=== PATIENT | female | born 1950 | race African-American/Black ===

== ENCOUNTER 2017-04-15 13:10 | Emergency (ER) | payer MEDICARE ==
[~2017-04-15] VITALS: Ht 170.2 cm; Wt 122.5 kg
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
[2017-04-15] MEDS ORDERED: Ketorolac 60mg Inj IM ONE (13:30)
[2017-04-15] MEDS ORDERED: Albuterol ud Inhalation HHN ONE (13:30)
[2017-04-15] MEDS ORDERED: Ipratropium 0.02% Inh Soln 2.5ml UD HHN ONE (13:30)
[2017-04-15] MEDS ORDERED: Tylenol #3 tab (300mg/30mg) ORAL ONE (13:30)
[2017-04-15 13:56] VITALS: BP 100/75
[2017-04-15] MEDS ORDERED: HYDROmorphone 1mg/ml Carpuject IM ONE (14:30)
[2017-04-15] MEDS ORDERED: ROBAXIN-750750 MG PO (14:44)
[2017-04-15] MEDS ORDERED: IBUPROFEN600 MG ORAL (14:44)
[2017-04-15] MEDS ORDERED: NORCO 10-325 T1 EACH ORAL (14:44)
[2017-04-15 14:58] VITALS: BP 129/73
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
--- NOTE | 2017-04-16 11:06 | Diagnostic Imaging Report ---
Indication: Chest pain Technique: One view of the chest Comparison: none Findings: There is marked eventration of left hemidiaphragm versus diaphragmatic hernia versus large hiatal hernia. The lungs and pleural spaces are clear. Surgical clips versus external metal versus artifact projected over the left lateral breast Impression: No acute process. Large diaphragmatic hernia versus diaphragmatic eventration versus hiatal hernia This agrees with the preliminary interpretation provided by the emergency room physician
== END 2017-04-15 15:08 | disposition home or self-care (01) ==
LOC: EMR 13:48
DX: S43.402A Unspecified sprain of left shoulder joint, initial encounter (principal); V43.52XA Car driver injured in collision with other type car in traffic accident, initial encounter; Y92.410 Unspecified street and highway as the place of occurrence of the external cause; I10 Essential (primary) hypertension; J45.909 Unspecified asthma, uncomplicated; Z88.0 Allergy status to penicillin; Z88.2 Allergy status to sulfonamides
CPT/HCPCS: 71010; 73030; 94640; 94664; 96372; 99284; J1170

== ENCOUNTER 2018-01-25 20:38 | Inpatient (IN) | payer MEDICARE ==
[~2018-01-25] VITALS: Ht 170.2 cm; Wt 107.5 kg
[~2018-01-25 20:38] MED LIST: IBUPROFEN600 MG ORAL; NORCO 10-325 T1 EACH ORAL; ROBAXIN-750750 MG PO
[2018-01-25] MEDS ORDERED: Gastrograffin 30ml ORAL PRN (21:15)
[2018-01-25] MEDS ORDERED: Isovue-300 100ml vial INJ PRN (21:15)
--- NOTE | 2018-01-25 21:22 | Emergency Room Report ---
History of Present Illness General Chief Complaint: General Complaint Source: Patient Present Illness HPI Patient is a 67-year-old female who presented after increased dizziness as well as lower abdominal pain. Patient gradual onset of symptoms. She reports having increased discomfort to her lower abdomen which was associated with sharp pain worse on the right side. Patient reports having recently decreased blood sugar. Patient had prior history of gastric bypass approximately 4 months ago. She had not been vomiting. Patient presented increased dizziness. She describes as a spinning sensation. The patient was noted to have a blood sugars in the 70s when she had check.The patient reports having a 40 pound weight loss after gastric bypass surgery. She reports taking the same medications that she previously been on. Allergies: Coded Allergies: PENICILLINS (Verified Allergy, Severe, Rash, 04/15/17) SULFA (SULFONAMIDE ANTIBIOTICS) (Verified Allergy, Severe, Rash, 04/15/17) Patient History Last Menstrual Period: none Reviewed Nursing Documentation: PMH: Agreed; PSxH: Agreed Nursing Documentation-PMH Hx Hypertension: Yes Hx Asthma: Yes Hx Diabetes: Yes Review of Systems All Other Systems: negative except mentioned in HPI Physical Exam Vital Signs Date Time Temp Pulse Resp B/P (MAP) Pulse Ox O2 Delivery O2 Flow Rate FiO2 01/25/18 20:43 98.6 100 20 115/74 92 Room Air 98.6 Sp02 EP Interpretation: reviewed, normal General Appearance: normal inspection, well appearing, no apparent distress, alert, GCS 15 Head: atraumatic ENT: normal ENT inspection, hearing grossly normal, normal voice Neck: normal inspection, full range of motion, supple, no bony tend Respiratory: normal inspection, lungs clear, normal breath sounds, no respiratory distress, no retraction, no wheezing Cardiovascular #1: regular rate, rhythm, no edema Gastrointestinal: normal inspection, normal bowel sounds, non tender, soft, no guarding, no hernia Genitourinary: no CVA tenderness Musculoskeletal: normal inspection, back normal, normal range of motion Neurologic: normal inspection, alert, oriented x3, responsive, speech normal Psychiatric: normal inspection, judgement/insight normal, mood/affect normal Skin: normal color, no rash, other - erythema to abdomen wall slight drainage tenderness Medical Decision Making Diagnostic Impression: Primary Impression: Abdominal wall cellulitis Additional Impressions: History of gastric bypass Urinary tract infection [place] infection Dizziness ER Course Patient presented for abdominal pain. Differential diagnoses included ischemic bowel, appendicitis, perforated viscus, abdominal aortic aneurysm, inferior myocardial infarction, viral gastroenteritis Because of complexity of patient's case laboratory testing and imaging studies were ordered. The patient's laboratory studies are unremarkable. Patient was noted to have some difficulty maintaining her sugar. The patient states she's lost 40 pounds since surgery however she's not had any of her diabetes medications adjusted subsequently. The patient was noted to have some evidence of erythema and slight discharge to the lower abdominal area. CT of abdomen and pelvis read by radiology showed no evidence of acute findings. Dr. Nathen Bond was contacted for inpatient management due to panel physician Labs Test 01/25/18 21:15 01/26/18 00:10 01/26/18 03:00 White Blood Count 6.9 K/UL (4.8-10.8) Red Blood Count 4.03 M/UL (4.20-5.40) Hemoglobin 10.5 G/DL (12.0-16.0) Hematocrit 33.2 % (37.0-47.0) Mean Corpuscular Volume 82 FL (80-99) Mean Corpuscular Hemoglobin 25.9 PG (27.0-31.0) Mean Corpuscular Hemoglobin Concent 31.5 G/DL (32.0-36.0) Red Cell Distribution Width 17.9 % (11.6-14.8) Platelet Count 389 K/UL (150-450) Mean Platelet Volume 6.1 FL (6.5-10.1) Neutrophils (%) (Auto) 47.2 % (45.0-75.0) Lymphocytes (%) (Auto) 40.3 % (20.0-45.0) Monocytes (%) (Auto) 8.2 % (1.0-10.0) Eosinophils (%) (Auto) 3.0 % (0.0-3.0) Basophils (%) (Auto) 1.3 % (0.0-2.0) Prothrombin Time 10.1 SEC (9.30-11.50) Prothromb Time International Ratio 1.0 (0.9-1.1) Activated Partial Thromboplast Time 26 SEC (23-33) Sodium Level 142 MMOL/L (136-145) Potassium Level 3.9 MMOL/L (3.5-5.1) Chloride Level 105 MMOL/L (98-107) Carbon Dioxide Level 28 MMOL/L (21-32) Anion Gap 9 mmol/L (5-15) Blood Urea Nitrogen 10 mg/dL (7-18) Creatinine 0.8 MG/DL (0.55-1.30) Estimat Glomerular Filtration Rate > 60 mL/min (>60) Glucose Level 104 MG/DL (74-106) Lactic Acid Level 1.10 mmol/L (0.4-2.0) Calcium Level 9.2 MG/DL (8.5-10.1) Phosphorus Level 4.1 MG/DL (2.5-4.9) Magnesium Level 1.9 MG/DL (1.8-2.4) Total Bilirubin 0.3 MG/DL (0.2-1.0) Aspartate Amino Transf (AST/SGOT) 18 U/L (15-37) Alanine Aminotransferase (ALT/SGPT) 24 U/L (12-78) Alkaline Phosphatase 94 U/L (46-116) Total Creatine Kinase 69 U/L (26-308) Creatine Kinase MB 0.5 NG/ML (0.0-3.6) Creatine Kinase MB Relative Index 0.7 Troponin I 0.000 ng/mL (0.000-0.056) Total Protein 7.4 G/DL (6.4-8.2) Albumin 3.6 G/DL (3.4-5.0) Globulin 3.8 g/dL Albumin/Globulin Ratio 0.9 (1.0-2.7) Urine Color Yellow Urine Appearance Clear Urine pH 7 (4.5-8.0) Urine Specific [place] 1.005 (1.005-1.035) Urine Protein 2+ (NEGATIVE) Urine Glucose (UA) Negative (NEGATIVE) Urine Ketones Negative (NEGATIVE) Urine Occult Blood Negative (NEGATIVE) Urine Nitrite Negative (NEGATIVE) Urine Bilirubin Negative (NEGATIVE) Urine Urobilinogen 1 MG/DL (0.0-1.0) Urine Leukocyte Esterase 1+ (NEGATIVE) Urine RBC 0-2 /HPF (0 - 2) Urine WBC 2-4 /HPF (0 - 2) Urine Squamous Epithelial Cells Few /LPF (NONE/OCC) Urine Bacteria Few /HPF (NONE) Hemoglobin A1c 6.3 % (4.3-6.0) Last Vital Signs Date Time Temp Pulse Resp B/P (MAP) Pulse Ox O2 Delivery O2 Flow Rate FiO2 01/25/18 20:43 98.6 100 20 115/74 92 Room Air 98.6 Status: unchanged Disposition: ADMITTED INPATIENT Condition: Stable Oskar Orozco MD Jan 25, 2018 21:21
[2018-01-25 22:04] LABS: BASOPHILS % (AUTO) 1.3 % (0.0-2.0); HEMATOCRIT 33.2 % (37.0-47.0); HEMOGLOBIN 10.5 G/DL (12.0-16.0); LYMPHOCYTES % (AUTO) 40.3 % (20.0-45.0); MEAN CORPUSCULAR VOLUME 82 FL (80-99); MONOCYTES % (AUTO) 8.2 % (1.0-10.0); NEUTROPHILS % (AUTO) 47.2 % (45.0-75.0); PLATELET COUNT 389 K/UL (150-450); RED BLOOD COUNT 4.03 M/UL (4.20-5.40); RED CELL DISTRIBUTION WIDTH 17.9 % (11.6-14.8); WHITE BLOOD COUNT 6.9 K/UL (4.8-10.8)
[2018-01-25 22:09] VITALS: BP 133/99
--- NOTE | 2018-01-25 22:10 | Diagnostic Imaging Report ---
EXAM: XR Chest, 1 View CLINICAL HISTORY: Shortness of breath TECHNIQUE: Frontal view of the chest. COMPARISON: 04/15/2017 FINDINGS: Lungs: Unremarkable. No consolidation. Pleural space: Unremarkable. No pneumothorax. Heart: Unremarkable. No cardiomegaly. Mediastinum: Unremarkable. Bones/joints: No acute osseous abnormality. Tubes, lines and devices: Telemetry leads overlie the patient. IMPRESSION: No acute cardiopulmonary process.
[2018-01-25 22:11] LABS: ANION GAP 9 mmol/L (5-15); BLOOD UREA NITROGEN 10 mg/dL (7-18); CALCIUM 9.2 MG/DL (8.5-10.1); CARBON DIOXIDE 28 MMOL/L (21-32); CHLORIDE 105 MMOL/L (98-107); CREATININE 0.8 MG/DL (0.55-1.30); POTASSIUM 3.9 MMOL/L (3.5-5.1); SODIUM 142 MMOL/L (136-145)
[2018-01-25 22:25] LABS: ALANINE AMINOTRANSFERASE 24 U/L (12-78); ALBUMIN 3.6 G/DL (3.4-5.0); ALBUMIN/GLOBULIN RATIO 0.9 (1.0-2.7); ALKALINE PHOSPHATASE 94 U/L (46-116); ASPARTATE AMINO TRANSFERASE 18 U/L (15-37); BILIRUBIN,TOTAL 0.3 MG/DL (0.2-1.0); CKMB 0.5 NG/ML (0.0-3.6); CREATINE KINASE 69 U/L (26-308); PHOSPHORUS 4.1 MG/DL (2.5-4.9)
[2018-01-25] MEDS ORDERED: Morphine Sulfate 4mg/ml Inj IVP ONE (23:15)
--- NOTE | 2018-01-25 23:21 | Diagnostic Imaging Report ---
EXAM: CT Abdomen and Pelvis With Intravenous Contrast CLINICAL HISTORY: ABD PAIN TECHNIQUE: Axial computed tomography images of the abdomen and pelvis with intravenous contrast. CTDI is 0.15, 19.28 mGy and DLP is 1018 mGy-cm. One or more of the following dose reduction techniques were used: automated exposure control, adjustment of the mA and/or kV according to patient size, use of iterative reconstruction technique. COMPARISON: No relevant prior studies available. FINDINGS: Lung bases: Unremarkable. No mass. No consolidation. ABDOMEN: Liver: Indeterminate 1.4 cm focus of hypoattenuation in the central liver near the gallbladder fossa. Gallbladder and bile ducts: Gallbladder surgically absent. Pancreas: Unremarkable. Spleen: Unremarkable. Adrenals: Unremarkable. Kidneys and ureters: Unremarkable. No solid mass. No hydronephrosis. Stomach and bowel: Gastric bypass. Bowel is nondilated. PELVIS: Appendix: No findings to suggest acute appendicitis. Bladder: Unremarkable. Reproductive: Uterus is absent. ABDOMEN and PELVIS: Intraperitoneal space: Unremarkable. No free air. Bones/joints: No acute osseous abnormality. Degenerative changes of the spine worst at T10-T11 where there is disc height loss and endplate sclerosis. Soft tissues: Unremarkable. Vasculature: Unremarkable. No abdominal aortic aneurysm. Lymph nodes: Unremarkable. IMPRESSION: No acute findings.
[2018-01-25] MEDS ORDERED: cefTRIAXone 1 GM in NS 55 ML IVPB ONE (23:45)
[2018-01-26] VITALS (8 sets, daily range): BP systolic 96–130; BP diastolic 52–80
[2018-01-26 00:43] LABS: APPEARANCE,URINE CLEAR; BILIRUBIN, URINE NEGATIVE (NEGATIVE); GLUCOSE, URINE (UA) NEGATIVE (NEGATIVE); KETONES,URINE NEGATIVE (NEGATIVE); LEUKOCYTE ESTERASE ,URINE 1+ (NEGATIVE); NITRITE,URINE NEGATIVE (NEGATIVE); PH,URINE 7 (4.5-8.0); PROTEIN,URINE 2+ (NEGATIVE); UROBILINOGEN,URINE 1 MG/DL (0.0-1.0)
[2018-01-26 00:48] LABS: COLOR,URINE YELLOW
[2018-01-26] MEDS ORDERED: Miralax 17gm pkt ORAL PRN (01:45)
[2018-01-26] MEDS ORDERED: ALBUTEROL2.5 MG/3 M INH (02:11)
[2018-01-26] MEDS ORDERED: PRILOSEC OTC20 MG ORAL (02:11)
[2018-01-26] MEDS ORDERED: METFORMIN HCL500 M1 ORAL (02:11)
[2018-01-26] MEDS ORDERED: ADALAT10 MG ORAL (02:11)
[2018-01-26] MEDS ORDERED: CYMBALTA30 MG ORAL (02:11)
[2018-01-26] MEDS: Morphine Sulfate 2mg/ml Inj IVP PRN ×3 (03:50→16:02)
[2018-01-26] MEDS ORDERED: Vancomycin 1.5 GM/D5W 250ML IVPB SCH (04:00)
[2018-01-26] MEDS ORDERED: Vancomycin 1.5gm/D5W 250ml 250 ML IVPB ONE (04:05)
[2018-01-26] MEDS: NovoLOG Insulin Flexpen SUBQ SCH ×4 (06:30→20:39)
[2018-01-26] MEDS: Docusate 100mg cap ORAL SCH ×2 (10:14→20:36)
[2018-01-26] MEDS: Heparin 5000 units/ml inj SUBQ SCH ×2 (10:16→20:38)
[2018-01-26] MEDS: Vancomycin 1gm/D5W 275ml IVPB SCH ×2 (16:08)
--- NOTE | 2018-01-26 16:43 | Infectious Diseases Prog Note ---
Assessment/Plan Assessment/Plan Full consult dictated: A) 1) abdominal wall cellulitis 2) ? fungal rash/component 3) pmh noted 4) allergies - pcn, tolerates rocephin P) 1) vancomycin plus rocephin 2) clotrimazole cream 3) watch clinically 4) thank you Subjective Allergies: Coded Allergies: PENICILLINS (Verified Allergy, Severe, Rash, 04/15/17) SULFA (SULFONAMIDE ANTIBIOTICS) (Verified Allergy, Severe, Rash, 04/15/17) Objective Vital Signs Last 24 Hour Vital Signs Date Time Temp Pulse Resp B/P (MAP) Pulse Ox O2 Delivery O2 Flow Rate FiO2 01/26/18 16:02 98.1 01/26/18 11:02 98.1 01/26/18 08:00 74 01/26/18 08:00 98.1 78 96/52 (67) 98.1 01/26/18 08:00 Room Air 01/26/18 04:00 98.2 77 96/52 (67) 98.2 01/26/18 04:00 85 01/26/18 04:00 Room Air 01/26/18 02:00 97.8 98 18 124/74 (91) 97 97.8 01/26/18 02:00 Room Air 01/26/18 01:53 98.6 01/26/18 01:40 98.6 87 15 129/80 97 Room Air 98.6 01/26/18 01:23 98.6 87 15 129/80 97 Room Air 98.6 01/26/18 00:05 98.6 81 20 130/74 97 Room Air 98.6 01/25/18 23:21 98.6 01/25/18 22:09 98.6 79 20 133/99 97 Room Air 98.6 01/25/18 20:43 98.6 100 20 115/74 92 Room Air 98.6 Height (Feet): 5 Height (Inches): 7.00 Weight (Pounds): 237 Laboratory Tests Test 01/25/18 21:15 01/26/18 00:10 01/26/18 03:00 White Blood Count 6.9 K/UL (4.8-10.8) Red Blood Count 4.03 M/UL (4.20-5.40) L Hemoglobin 10.5 G/DL (12.0-16.0) L Hematocrit 33.2 % (37.0-47.0) L Mean Corpuscular Volume 82 FL (80-99) Mean Corpuscular Hemoglobin 25.9 PG (27.0-31.0) L Mean Corpuscular Hemoglobin Concent 31.5 G/DL (32.0-36.0) L Red Cell Distribution Width 17.9 % (11.6-14.8) H Platelet Count 389 K/UL (150-450) Mean Platelet Volume 6.1 FL (6.5-10.1) L Neutrophils (%) (Auto) 47.2 % (45.0-75.0) Lymphocytes (%) (Auto) 40.3 % (20.0-45.0) Monocytes (%) (Auto) 8.2 % (1.0-10.0) Eosinophils (%) (Auto) 3.0 % (0.0-3.0) Basophils (%) (Auto) 1.3 % (0.0-2.0) Prothrombin Time 10.1 SEC (9.30-11.50) Prothromb Time International Ratio 1.0 (0.9-1.1) Activated Partial Thromboplast Time 26 SEC (23-33) Sodium Level 142 MMOL/L (136-145) Potassium Level 3.9 MMOL/L (3.5-5.1) Chloride Level 105 MMOL/L (98-107) Carbon Dioxide Level 28 MMOL/L (21-32) Anion Gap 9 mmol/L (5-15) Blood Urea Nitrogen 10 mg/dL (7-18) Creatinine 0.8 MG/DL (0.55-1.30) Estimat Glomerular Filtration Rate > 60 mL/min (>60) Glucose Level 104 MG/DL (74-106) Lactic Acid Level 1.10 mmol/L (0.4-2.0) Calcium Level 9.2 MG/DL (8.5-10.1) Phosphorus Level 4.1 MG/DL (2.5-4.9) Magnesium Level 1.9 MG/DL (1.8-2.4) Total Bilirubin 0.3 MG/DL (0.2-1.0) Aspartate Amino Transf (AST/SGOT) 18 U/L (15-37) Alanine Aminotransferase (ALT/SGPT) 24 U/L (12-78) Alkaline Phosphatase 94 U/L (46-116) Total Creatine Kinase 69 U/L (26-308) Creatine Kinase MB 0.5 NG/ML (0.0-3.6) Creatine Kinase MB Relative Index 0.7 Troponin I 0.000 ng/mL (0.000-0.056) Total Protein 7.4 G/DL (6.4-8.2) Albumin 3.6 G/DL (3.4-5.0) Globulin 3.8 g/dL Albumin/Globulin Ratio 0.9 (1.0-2.7) L Urine Color Yellow Urine Appearance Clear Urine pH 7 (4.5-8.0) Urine Specific [place] 1.005 (1.005-1.035) Urine Protein 2+ (NEGATIVE) H Urine Glucose (UA) Negative (NEGATIVE) Urine Ketones Negative (NEGATIVE) Urine Occult Blood Negative (NEGATIVE) Urine Nitrite Negative (NEGATIVE) Urine Bilirubin Negative (NEGATIVE) Urine Urobilinogen 1 MG/DL (0.0-1.0) H Urine Leukocyte Esterase 1+ (NEGATIVE) H Urine RBC 0-2 /HPF (0 - 2) Urine WBC 2-4 /HPF (0 - 2) Urine Squamous Epithelial Cells Few /LPF (NONE/OCC) Urine Bacteria Few /HPF (NONE) Hemoglobin A1c 6.3 % (4.3-6.0) H Current Medications Medications (Trade) Dose Ordered Sig/Christina Route PRN Reason Start Time Stop Time Status Last Admin Dose Admin Acetaminophen (Tylenol) 650 mg Q4H PRN ORAL Mild Pain (Pain Scale 1-3) 01/26/18 01:45 02/25/18 01:44 Acetaminophen (Tylenol) 650 mg Q4H PRN ORAL fever 01/26/18 01:45 02/25/18 01:44 Bisacodyl (Dulcolax) 10 mg DAILYPRN PRN RECTAL Constipation 01/26/18 01:45 02/25/18 01:44 Ceftriaxone Sodium 1 gm/ Dextrose 55 ml @ 110 mls/hr Q24H IVPB 01/27/18 00:00 02/03/18 00:00 Dextrose (Dextrose 50%) 25 ml STAT PRN IV Hypoglycemia 01/26/18 01:45 02/25/18 01:44 Dextrose (Dextrose 50%) 50 ml STAT PRN IV Hypoglycemia 01/26/18 01:45 02/25/18 01:44 Diatrizoate Meglum/ Diatrizoate Sod (Gastrografin) 30 ml NOW PRN ORAL Radiology Procedure 01/25/18 21:15 Docusate Sodium (Colace) 100 mg EVERY 12 HOURS ORAL 01/26/18 09:00 02/25/18 08:59 01/26/18 10:14 Heparin Sodium (Porcine) (Heparin 5000 units/ml) 5,000 units EVERY 12 HOURS SUBQ 01/26/18 09:00 02/25/18 08:59 01/26/18 10:16 Insulin Aspart (NovoLOG) BEFORE MEALS AND HS SUBQ 01/26/18 06:30 02/25/18 06:29 Iopamidol (Isovue-300 100ml) 100 ml NOW PRN INJ Radiology Procedure 01/25/18 21:15 Morphine Sulfate (Morphine Sulfate) 2 mg Q4H PRN IVP moderate pain 01/26/18 02:00 02/02/18 01:59 01/26/18 16:02 Morphine Sulfate (Morphine Sulfate) 4 mg Q4H PRN IVP severe pain 01/26/18 02:00 02/02/18 01:59 Ondansetron HCl (Zofran) 4 mg Q6H PRN IVP Nausea & Vomiting 01/26/18 01:45 02/25/18 01:44 Polyethylene Glycol (Miralax) 17 gm DAILYPRN PRN ORAL Constipation 01/26/18 01:45 02/25/18 01:44 Vancomycin HCl (Vanco rx to dose) 1 ea DAILY PRN MISC Per rx protocol 01/26/18 02:00 02/25/18 01:59 Vancomycin HCl 1 gm/Dextrose 275 ml @ 183.708 mls/hr Q12HR@0400,1600 IVPB 01/26/18 16:00 01/31/18 15:59 01/26/18 16:08 Billy Waters MD Jan 26, 2018 16:43
[2018-01-26] MEDS: Morphine Sulfate 4mg/ml Inj IVP PRN (22:32)
--- NOTE | 2018-01-26 22:39 | History and Physical ---
History of Present Illness General Date patient seen: Jan 26, 2018 Time patient seen: 09:15 Reason for Hospitalization: General Complaint Present Illness HPI 67 year-old woman who presented after increased dizziness as well as lower abdominal pain. Patient reports having increased discomfort to her lower abdomen which was associated with sharp pain worse on the right side. She also notes having recently decreased blood sugar. Patient had prior history of gastric bypass approximately 4 months ago. +Nausea no vomitiing..+dizziness She reports having a 40 pound weight loss after gastric bypass surgery. PMHx: DM, HTN, obesity PSHx: gastric bypass FHx: + DM in mother SHX: No tobacco, EtOH or IVDA Allergies: Coded Allergies: PENICILLINS (Verified Allergy, Severe, Rash, 04/15/17) SULFA (SULFONAMIDE ANTIBIOTICS) (Verified Allergy, Severe, Rash, 04/15/17) Medication History Scheduled Duloxetine Hcl* (Cymbalta*), Unknown Dose ORAL DAILY, (Reported) Ibuprofen* (Motrin*), 600 MG ORAL THREE TIMES A DAY Metformin Hcl* (Metformin Hcl*), Unknown Dose ORAL TWICE A DAY, (Reported) Methocarbamol* (Robaxin-750*), 750 MG PO TID Nifedipine (Nifedipine*), Unknown Dose ORAL EVERY 6 HOURS, (Reported) Omeprazole Magnesium (Prilosec Otc), Unknown Dose ORAL DAILY, (Reported) Scheduled PRN Albuterol Sulfate* (Albuterol Sulfate Hhn*), Unknown Dose INH Q4H PRN for Shortness of Breath, (Reported) Hydrocodone Bit/Acetaminophen 10-325* ([place] 10-325*), 1 TAB ORAL Q6H PRN for For Pain Patient History History Provided By: Patient Healthcare decision maker Resuscitation status Full Code Advanced Directive on File Review of Systems Constitutional: Reports: malaise, weakness Eye: Reports: no symptoms ENT: Reports: no symptoms Respiratory: Reports: no symptoms Cardiovascular: Reports: no symptoms Gastrointestinal: Reports: abdominal pain, nausea Genitourinary: Reports: no symptoms Musculoskeletal: Reports: no symptoms Skin: Reports: rash Psychiatric: Reports: no symptoms Neurological: Reports: no symptoms Endocrine: Reports: see HPI Hematologic/Lymphatic: Reports: no symptoms All Other Systems: negative except mentioned in HPI Physical Exam General Appearance: WD/WN Lines, tubes and drains: peripheral HEENT: normocephalic, atraumatic, PERRL, EOMI, no JVD Neck: non-tender, supple Respiratory/Chest: chest wall non-tender, lungs clear Breasts: no masses Cardiovascular/Chest: normal peripheral pulses, normal rate, regular rhythm, no gallop/murmur, no JVD Abdomen: normal bowel sounds, tender, other - Erythema on lower part of abdomen underneath pannus Extremities: normal range of motion, non-tender Skin Exam: rash Neurologic: daytime caregiver II-XII grossly normal, no motor/sensory deficits Lymphatic: inguinal (L) Musculoskeletal: normal muscle bulk Last 24 Hour Vital Signs Date Time Temp Pulse Resp B/P (MAP) Pulse Ox O2 Delivery O2 Flow Rate FiO2 01/26/18 20:00 97.7 72 20 106/75 (85) 98 97.7 01/26/18 20:00 Room Air 01/26/18 19:07 61 01/26/18 16:32 98.1 01/26/18 16:02 98.1 01/26/18 16:00 65 01/26/18 16:00 98.1 74 120/71 (87) 98.1 01/26/18 16:00 Room Air 01/26/18 12:00 98.2 78 119/72 (88) 98.2 01/26/18 08:00 74 01/26/18 08:00 98.1 78 96/52 (67) 98.1 01/26/18 08:00 Room Air 01/26/18 04:00 98.2 77 96/52 (67) 98.2 01/26/18 04:00 85 01/26/18 04:00 Room Air 01/26/18 02:00 97.8 98 18 124/74 (91) 97 97.8 01/26/18 02:00 Room Air 01/26/18 01:53 98.6 01/26/18 01:40 98.6 87 15 129/80 97 Room Air 98.6 01/26/18 01:23 98.6 87 15 129/80 97 Room Air 98.6 01/26/18 00:05 98.6 81 20 130/74 97 Room Air 98.6 01/25/18 23:21 98.6 Intake and Output 01/25/18 01/26/18 19:00 07:00 Intake Total 350 ml Output Total 120 ml Balance 230 ml IV Total 350 ml Output Urine Total 120 ml # Voids 2 Laboratory Tests Test 01/26/18 00:10 01/26/18 03:00 Urine Color Yellow Urine Appearance Clear Urine pH 7 (4.5-8.0) Urine Specific [place] 1.005 (1.005-1.035) Urine Protein 2+ (NEGATIVE) H Urine Glucose (UA) Negative (NEGATIVE) Urine Ketones Negative (NEGATIVE) Urine Occult Blood Negative (NEGATIVE) Urine Nitrite Negative (NEGATIVE) Urine Bilirubin Negative (NEGATIVE) Urine Urobilinogen 1 MG/DL (0.0-1.0) H Urine Leukocyte Esterase 1+ (NEGATIVE) H Urine RBC 0-2 /HPF (0 - 2) Urine WBC 2-4 /HPF (0 - 2) Urine Squamous Epithelial Cells Few /LPF (NONE/OCC) Urine Bacteria Few /HPF (NONE) Hemoglobin A1c 6.3 % (4.3-6.0) H Height (Feet): 5 Height (Inches): 7.00 Weight (Pounds): 237 Medications Current Medications Medications (Trade) Dose Ordered Sig/Christina Route PRN Reason Start Time Stop Time Status Last Admin Dose Admin Acetaminophen (Tylenol) 650 mg Q4H PRN ORAL Mild Pain (Pain Scale 1-3) 01/26/18 01:45 02/25/18 01:44 Acetaminophen (Tylenol) 650 mg Q4H PRN ORAL fever 01/26/18 01:45 02/25/18 01:44 Bisacodyl (Dulcolax) 10 mg DAILYPRN PRN RECTAL Constipation 01/26/18 01:45 02/25/18 01:44 Ceftriaxone Sodium 1 gm/ Dextrose 55 ml @ 110 mls/hr Q24H IVPB 01/27/18 00:00 02/03/18 00:00 Clotrimazole (Lotrimin) 1 applic EVERY 12 HOURS TOPIC 01/26/18 21:00 02/25/18 20:59 01/26/18 20:39 Dextrose (Dextrose 50%) 25 ml STAT PRN IV Hypoglycemia 01/26/18 01:45 02/25/18 01:44 Dextrose (Dextrose 50%) 50 ml STAT PRN IV Hypoglycemia 01/26/18 01:45 02/25/18 01:44 Diatrizoate Meglum/ Diatrizoate Sod (Gastrografin) 30 ml NOW PRN ORAL Radiology Procedure 01/25/18 21:15 Docusate Sodium (Colace) 100 mg EVERY 12 HOURS ORAL 01/26/18 09:00 02/25/18 08:59 01/26/18 20:36 Heparin Sodium (Porcine) (Heparin 5000 units/ml) 5,000 units EVERY 12 HOURS SUBQ 01/26/18 09:00 02/25/18 08:59 01/26/18 20:38 Insulin Aspart (NovoLOG) BEFORE MEALS AND HS SUBQ 01/26/18 06:30 02/25/18 06:29 01/26/18 20:39 Iopamidol (Isovue-300 100ml) 100 ml NOW PRN INJ Radiology Procedure 01/25/18 21:15 Morphine Sulfate (Morphine Sulfate) 2 mg Q4H PRN IVP moderate pain 01/26/18 02:00 02/02/18 01:59 01/26/18 16:02 Morphine Sulfate (Morphine Sulfate) 4 mg Q4H PRN IVP severe pain 01/26/18 02:00 02/02/18 01:59 01/26/18 22:32 Ondansetron HCl (Zofran) 4 mg Q6H PRN IVP Nausea & Vomiting 01/26/18 01:45 02/25/18 01:44 Polyethylene Glycol (Miralax) 17 gm DAILYPRN PRN ORAL Constipation 01/26/18 01:45 02/25/18 01:44 Vancomycin HCl (Vanco rx to dose) 1 ea DAILY PRN MISC Per rx protocol 01/26/18 02:00 02/25/18 01:59 Vancomycin HCl 1 gm/Dextrose 275 ml @ 183.708 mls/hr Q12HR@0400,1600 IVPB 01/26/18 16:00 01/31/18 15:59 01/26/18 16:08 Assessment/Plan Status: unchanged Status Narrative 67 yo woman with DM and recent gastric bypass surgery with erythema and abdominal pain concerning for abdominal wall cellulitis Assessment/Plan 1_Abdominal wall cellulitis r/o sepsis -Vancomycin and ceftriaxone ordered ID consulted- f/u recommendations f/u lactic acid; IVF's 2. DM -ISS -hold home medications given reports of low sugars -f/u A1c 3. HTN -Hold medications in the setting of possible sepsis -resume as BP's climb 4. F/E/N -IVF's -Carb controlled diet DVT Prophylaxis:SCDs, heparin Code status:Full Hospital Classification declaration:Based on this initial evaluation, and depending on the patient's clinical course, I anticipate that this patient will require hospitalization for 2-3 days for IV antibiotic administration. Disposition:Once the patient is stable to leave the hospital, I anticipate the patient will likely be discharged to the following environment: Home I spent 70 minutes on this patient's case, and 36~minutes was dedicated to counseling and/or care coordination. Time of note may not reflect time of encounter. Oscar Cruz M.D. Jan 26, 2018 22:39
[2018-01-27] VITALS: BP_SYST 104; BP_SYST 130; BP_DIAS 56; BP_DIAS 63
[2018-01-27] MEDS ORDERED: cefTRIAXone 1 GM in D5W 55 ML IVPB SCH ×2
--- NOTE | 2018-01-27 00:30 | Consultation ---
DATE OF CONSULTATION: 01/26/2018 INFECTIOUS DISEASE CONSULTATION CONSULTING PHYSICIAN: Billy Waters M.D. ATTENDING PHYSICIAN: Cindy Wiggins M.D. REFERRING PHYSICIAN: Cindy Wiggins M.D. REASON FOR CONSULTATION: Abdominal cellulitis. The patient's chief complaint coming into the hospital is abdominal wall cellulitis and abdominal pain and generalized weakness. HISTORY OF PRESENT ILLNESS: This is a very pleasant 67-year-old female who comes in to [facility]. The patient has 3 days of abdominal pain. Clinically, the patient has abdominal cellulitis with warmth today, redness and pain to the lower part of the abdominal wall. The patient was started on vancomycin and Rocephin. This is possible component with itching to the abdominal wall at the site of the cellulitis. Infectious Disease consultation is requested for antibiotic management. The patient will continue on vancomycin and Rocephin for now. PAST MEDICAL HISTORY: She said she has history of recent gastric bypass surgery. She has history of hypertension, asthma and diabetes. MEDICATIONS: Upon reviewing the MAR, she is on the following medications on Rocephin, vancomycin, heparin, docusate, insulin and morphine. She is on acetaminophen, bisacodyl, polyethylene, and Zofran. Outside medications were noted and reconciliated. She was on albuterol, duloxetine, Cymbalta, hydrocodone, metformin, ibuprofen, methocarbamol, nifedipine, and omeprazole. Outside medications noted and reconciliated as above. ALLERGIES: She is allergic to both penicillin and sulfa. FAMILY HISTORY: Noncontributory. Negative for exposure to tuberculosis or cancer. SOCIAL HISTORY: Negative for smoking, alcohol, or drug abuse. REVIEW OF SYSTEMS: CONSTITUTIONAL: The patient has currently no fever or chills. She has maybe some generalized fatigue, but no focal weakness. HEAD AND NECK: Head pain, neck pain, or change in vision. No neck stiffness. CARDIAC: No chest pain or palpitations. GASTROINTESTINAL: No nausea, vomiting, or diarrhea. She does have abdominal pain for 3 days. PULMONARY: She has no shortness of breath, cough, congestion, or secretions. SKIN: No rash or itching. EXTREMITIES: No extremity pain. NEUROLOGIC: No seizures. PHYSICAL EXAMINATION: VITAL SIGNS: Pulse rate is 74, respiratory rate is 18, blood pressure 96/52, temperature 98.1 degrees, and saturation 97% on room air. GENERAL: Alert and responsive, no distress. She is alert and oriented x3. HEAD AND NECK: Oral exam, no thrush. Eye exam, no icterus. Neck is supple. No JVD. Normocephalic. No facial droop. HEART: Regular. No gallop or murmur. ABDOMEN: Soft. Positive bowel sounds. She has some tenderness in the lower part of the abdomen with warmth and redness consistent with cellulitis and also underlying fungal rash. LUNGS: Clear bilaterally. No rhonchi or rales. SKIN: No other rash noted. MUSCULOSKELETAL: No effusion. Legs without cellulitis. PERIPHERAL VASCULAR: No cyanosis or gangrene. GENITOURINARY: She has no Gaines. No CVA tenderness. LINE SITES: Without phlebitis. NEUROLOGIC: Intact and nonfocal. Alert and oriented x3. LABORATORY AND DIAGNOSTIC DATA: White count 6.9 and hemoglobin 10.5. Creatinine 0.8. Imaging, the patient had a CT scan of the abdomen and pelvis, which showed no acute findings. Chest x-ray showed no acute cardiopulmonary disease. ASSESSMENT AND PLAN: 1. The patient has abdominal wall cellulitis in the lower part of the abdomen. Most likely, this is Staph aureus or group A strep. Rule out gram-negative organisms. Continue vancomycin and Rocephin for abdominal cellulitis, watch the patient clinically. The patient also has possible underlying fungal component with itching. We will add clotrimazole cream to the regimen. Continue vancomycin, Rocephin, and clotrimazole. Watch the patient's abdominal wall cellulitis clinically. 2. Diabetes. 3. Hypertension. 4. History of gastric bypass surgery. 5. History of asthma. 6. MAR was noted. 7. Allergy to penicillin and sulfa. 8. Family history is noncontributory. 9. Case was discussed with RN. 10. Social history is negative for smoking, alcohol, or drug use. 11. Continue treatment per primary consultants. 12. Notes were noted. Orders were entered. 13. Case was discussed with the patient and the RN. Billy Waters M.D. DR: DYLAN JOB#: [id number] CC:
[2018-01-27] MEDS: Vancomycin 1gm/D5W 275ml IVPB SCH ×2 (03:45)
[2018-01-27] MEDS: Morphine Sulfate 4mg/ml Inj IVP PRN ×3 (03:58→20:16)
[2018-01-27 04:00] VITALS: BP 105/70
[2018-01-27 04:25] LABS: BASOPHILS % (AUTO) 0.9 % (0.0-2.0); EOSINOPHILS % (AUTO) 4.5 % (0.0-3.0); HEMATOCRIT 31.9 % (37.0-47.0); HEMOGLOBIN 9.8 G/DL (12.0-16.0); LYMPHOCYTES % (AUTO) 39.8 % (20.0-45.0); MEAN CORPUSCULAR VOLUME 82 FL (80-99); MONOCYTES % (AUTO) 7.5 % (1.0-10.0); NEUTROPHILS % (AUTO) 47.3 % (45.0-75.0); PLATELET COUNT 355 K/UL (150-450); RED BLOOD COUNT 3.87 M/UL (4.20-5.40); RED CELL DISTRIBUTION WIDTH 18.2 % (11.6-14.8); WHITE BLOOD COUNT 4.5 K/UL (4.8-10.8)
[2018-01-27 05:48] LABS: ANION GAP 6 mmol/L (5-15); BLOOD UREA NITROGEN 7 mg/dL (7-18); CARBON DIOXIDE 29 MMOL/L (21-32); CHLORIDE 106 MMOL/L (98-107); CREATININE 0.7 MG/DL (0.55-1.30); POTASSIUM 4.2 MMOL/L (3.5-5.1); SODIUM 141 MMOL/L (136-145)
[2018-01-27] MEDS: NovoLOG Insulin Flexpen SUBQ SCH ×4 (06:23→20:15)
[2018-01-27 08:00] VITALS: BP 120/71
--- NOTE | 2018-01-27 08:42 | General Progress Note ---
Assessment/Plan Status: not improved Status Narrative 67 yo woman DM, uncontrolled Admitted for abdominal wall cellulitis/panniculitis Assessment/Plan 1_Abdominal wall cellulitis r/o sepsis -Vancomycin and ceftriaxone ordered ID consulted- recs appreciated f/u lactic acid; IVF's pain control 2. DM -ISS -hold home medications given reports of low sugars -f/u A1c 3. HTN -Hold medications in the setting of possible sepsis -resume as BP's climb 4. F/E/N -IVF's -Carb controlled diet DVT Prophylaxis: scd's, Code status: full Hospital Classification declaration: Based on this initial evaluation, and depending on the patient's clinical course, I anticipate that this patient will require hospitalization for 2-3 days. Disposition: Once the patient is stable to leave the hospital, I anticipate the patient will likely be discharged to the following environment:Home vs SNF I spent 45 minutes on this patient's case, and 35 minutes was dedicated to counseling and/or care coordination. Time of note may not reflect time of encounter. Subjective Date patient seen: Jan 27, 2018 Time patient seen: 08:55 ROS Limited/Unobtainable: No Constitutional: Reports: malaise, weakness HEENT: Reports: no symptoms Cardiovascular: Reports: no symptoms Respiratory: Reports: no symptoms Gastrointestinal/Abdominal: Reports: abdominal pain, nausea Genitourinary: Reports: no symptoms Neurologic/Psychiatric: Reports: no symptoms Endocrine: Reports: no symptoms Hematologic/Lymphatic: Reports: no symptoms Allergies: Coded Allergies: PENICILLINS (Verified Allergy, Severe, Rash, 04/15/17) SULFA (SULFONAMIDE ANTIBIOTICS) (Verified Allergy, Severe, Rash, 04/15/17) Subjective No acute events overnight Notes persistent pain overlying abdominal wall No vomiting overnight; +nausea Objective Last 24 Hour Vital Signs Date Time Temp Pulse Resp B/P (MAP) Pulse Ox O2 Delivery O2 Flow Rate FiO2 01/27/18 04:00 97.7 65 20 105/70 (82) 97 97.7 01/27/18 04:00 Room Air 01/27/18 03:35 59 01/27/18 00:00 Room Air 01/27/18 00:00 98.2 66 20 104/56 (72) 93 98.2 01/26/18 23:54 76 01/26/18 20:00 97.7 72 20 106/75 (85) 98 97.7 01/26/18 20:00 Room Air 01/26/18 19:07 61 01/26/18 16:32 98.1 01/26/18 16:02 98.1 01/26/18 16:00 65 01/26/18 16:00 98.1 74 120/71 (87) 98.1 01/26/18 16:00 Room Air 01/26/18 12:00 98.2 78 119/72 (88) 98.2 Intake and Output 01/26/18 01/27/18 19:00 07:00 Intake Total 300 ml 330.000 ml Balance 300 ml 330.000 ml Intake Oral 300 ml IV Total 330.000 ml # Voids 3 3 Laboratory Tests 01/27/18 04:05: White Blood Count 4.5L, Red Blood Count 3.87L, Hemoglobin 9.8L, Hematocrit 31.9L , Mean Corpuscular Volume 82, Mean Corpuscular Hemoglobin 25.3L, Mean Corpuscular Hemoglobin Concent 30.7L, Red Cell Distribution Width 18.2H, Platelet Count 355, Mean Platelet Volume 6.4L, Neutrophils (%) (Auto) 47.3, Lymphocytes (%) (Auto) 39.8, Monocytes (%) (Auto) 7.5, Eosinophils (%) (Auto) 4.5H, Basophils (%) (Auto) 0.9, Sodium Level 141, Potassium Level 4.2, Chloride Level 106, Carbon Dioxide Level 29, Anion Gap 6, Blood Urea Nitrogen 7, Creatinine 0.7, Estimat Glomerular Filtration Rate > 60, Glucose Level 106, Calcium Level 9.0, Magnesium Level 2.1, Thyroid Stimulating Hormone (TSH) 4.922H Height (Feet): 5 Height (Inches): 7.00 Weight (Pounds): 237 General Appearance: no apparent distress, obese EENT: PERRL/EOMI, TMs normal, pharynx normal Neck: non-tender, supple Cardiovascular: normal peripheral pulses, normal rate, regular rhythm Respiratory/Chest: chest wall non-tender, normal breath sounds Abdomen: normal bowel sounds, tender Pelvis: normal external exam Extremities: non-tender, no calf tenderness Edema: trace edema Neurologic: cook starch II-XII grossly normal Skin: normal pigmentation Lymphatic: normal anterior cervical (L), normal anterior cervical (R) Cruz,Oscar M.D. Jan 27, 2018 08:42
[2018-01-27] MEDS: Docusate 100mg cap ORAL SCH ×2 (09:38→20:15)
[2018-01-27] MEDS: Heparin 5000 units/ml inj SUBQ SCH ×2 (09:44→20:20)
[2018-01-27] MEDS: Morphine Sulfate 2mg/ml Inj IVP PRN (11:20)
[2018-01-27 12:00] VITALS: BP 112/69
--- NOTE | 2018-01-27 14:49 | Cardiology Report ---
APPROVED REPORT EKG Measurement Heart [id number] NE 150P12 [id number] Normal sinus rhythm Inferior infarct, age undetermined Abnormal ECG
[2018-01-27] MEDS ORDERED: Gastrograffin 30ml ORAL PRN (14:56)
[2018-01-27] MEDS ORDERED: Morphine Sulfate 2mg/ml Inj IVP PRN (14:57)
[2018-01-27] MEDS ORDERED: Isovue-300 100ml vial INJ PRN (14:57)
[2018-01-27] MEDS ORDERED: Miralax 17gm pkt ORAL PRN (14:58)
[2018-01-27] MEDS ORDERED: NS 275ml ONE (15:59)
[2018-01-27 16:00] VITALS: BP 122/70
[2018-01-27] MEDS ORDERED: Vancomycin 1 GM in D5W 275 ML IVPB SCH (16:00)
[2018-01-27] MEDS: Vancomycin 1250mg/D5W 250ml IVPB SCH (16:53)
[2018-01-27 20:00] VITALS: BP 121/78
[2018-01-27] MEDS: cefTRIAXone 1 GM in D5W 55 ML IVPB SCH (23:18)
[2018-01-28] VITALS: BP 111/64
[2018-01-28] MEDS: Morphine Sulfate 4mg/ml Inj IVP PRN ×5 (00:20→20:32)
[2018-01-28 04:00] VITALS: BP 133/73
[2018-01-28] MEDS: Vancomycin 1250mg/D5W 250ml IVPB SCH ×2 (05:41→16:20)
[2018-01-28] MEDS: NovoLOG Insulin Flexpen SUBQ SCH ×4 (05:48→21:08)
[2018-01-28 08:18] VITALS: BP 106/55
[2018-01-28] MEDS: Docusate 100mg cap ORAL SCH ×2 (09:12→21:01)
[2018-01-28] MEDS: Heparin 5000 units/ml inj SUBQ SCH ×2 (09:13→21:02)
[2018-01-28 10:03] LABS: BASOPHILS % (AUTO) 1.1 % (0.0-2.0); EOSINOPHILS % (AUTO) 4.2 % (0.0-3.0); HEMATOCRIT 32.6 % (37.0-47.0); HEMOGLOBIN 9.8 G/DL (12.0-16.0); LYMPHOCYTES % (AUTO) 38.4 % (20.0-45.0); MEAN CORPUSCULAR VOLUME 82 FL (80-99); MONOCYTES % (AUTO) 8.8 % (1.0-10.0); NEUTROPHILS % (AUTO) 47.6 % (45.0-75.0); PLATELET COUNT 367 K/UL (150-450); RED BLOOD COUNT 3.99 M/UL (4.20-5.40); WHITE BLOOD COUNT 4.5 K/UL (4.8-10.8)
[2018-01-28 10:21] LABS: ANION GAP 6 mmol/L (5-15); BLOOD UREA NITROGEN 4 mg/dL (7-18); CALCIUM 8.9 MG/DL (8.5-10.1); CARBON DIOXIDE 31 MMOL/L (21-32); CHLORIDE 105 MMOL/L (98-107); CREATININE 0.6 MG/DL (0.55-1.30); POTASSIUM 3.6 MMOL/L (3.5-5.1); SODIUM 142 MMOL/L (136-145)
[2018-01-28 10:25] LABS: ALANINE AMINOTRANSFERASE 126 U/L (12-78); ALBUMIN/GLOBULIN RATIO 0.9 (1.0-2.7); ALKALINE PHOSPHATASE 277 U/L (46-116); ASPARTATE AMINO TRANSFERASE 131 U/L (15-37); BILIRUBIN,TOTAL 0.2 MG/DL (0.2-1.0)
[2018-01-28 12:10] VITALS: BP 106/61
--- NOTE | 2018-01-28 13:44 | General Progress Note ---
Assessment/Plan Problem List: (1) Transaminitis ICD Codes: R74.0 - Nonspecific elevation of levels of transaminase and lactic acid dehydrogenase [LDH] SNOMED: 775258197, 854504579 (2) History of cholecystectomy ICD Codes: Z90.49 - Acquired absence of other specified parts of digestive tract SNOMED: 18932420, 424539180 (3) Dizziness ICD Codes: R42 - Dizziness and giddiness SNOMED: 371935762, 116030576 (4) Abdominal wall cellulitis ICD Codes: L03.311 - Cellulitis of abdominal wall SNOMED: 41509687 (5) History of gastric bypass ICD Codes: Z98.84 - Bariatric surgery status SNOMED: 583412319 Status: stable, progressing Assessment/Plan 67 yo woman DM, uncontrolled Admitted for abdominal wall cellulitis/panniculitis Assessment/Plan 1. Abdominal wall cellulitis - continue IV Vancomycin and ceftriaxone (D2) - ID consulted- recs appreciated - lactic acid 1.0 - IVF - pain control - CT a/p unremarkable - CXR with no acute disease 2. DM - ISS - hold home medications given reports of low sugars - f/u A1c -- 6.3 3. HTN - Hold medications in the setting of possible sepsis - resume as BP's climb 4. Transaminitis - f/u hepatitis panel - CT a/p showing gallbladder surgically absent - trend LFTs - GI consulted - clotrimazole unlikely cause for etiology as this is given topically. tylenol not a cause either given appropriate dosages given to patient (<3g per day) 4. F/E/N -IVF's -Carb controlled diet DVT Prophylaxis: scd's, Code status: full Hospital Classification declaration: Based on this initial evaluation, and depending on the patient's clinical course, I anticipate that this patient will require hospitalization for 2-3 days. Disposition: Once the patient is stable to leave the hospital, I anticipate the patient will likely be discharged to the following environment:Home vs SNF I spent 45 minutes on this patient's case, and 35 minutes was dedicated to counseling and/or care coordination. Time of note may not reflect time of encounter. Subjective Date patient seen: Jan 28, 2018 Allergies: Coded Allergies: PENICILLINS (Verified Allergy, Severe, Rash, 04/15/17) SULFA (SULFONAMIDE ANTIBIOTICS) (Verified Allergy, Severe, Rash, 04/15/17) Subjective - LFTs uptrending - continues to report abdominal pain and nausea but no vomiting - AF, HDS Objective Last 24 Hour Vital Signs Date Time Temp Pulse Resp B/P (MAP) Pulse Ox O2 Delivery O2 Flow Rate FiO2 01/28/18 12:10 97.8 63 18 106/61 (76) 96 97.8 01/28/18 11:18 98.7 01/28/18 10:48 98.7 01/28/18 09:00 Room Air 01/28/18 08:18 98.7 68 18 106/55 (72) 96 98.7 01/28/18 04:00 97.9 65 18 133/73 (93) 96 97.9 01/28/18 00:00 98.0 70 20 111/64 (80) 98 98.0 01/27/18 21:00 Room Air 01/27/18 20:00 98.6 73 18 121/78 (92) 95 98.6 01/27/18 16:04 97.9 01/27/18 16:00 98.1 73 18 122/70 (87) 100 98.1 18 Intake and Output 01/27/18 01/28/18 19:00 07:00 Intake Total 300 ml 971.667 ml Balance 300 ml 971.667 ml Intake Oral 300 ml 500 ml IV Total 471.667 ml # Voids 1 3 Laboratory Tests 01/27/18 14:45: Vancomycin Level Trough 9.7 01/28/18 09:55: White Blood Count 4.5L, Red Blood Count 3.99L, Hemoglobin 9.8L, Hematocrit 32.6L , Mean Corpuscular Volume 82, Mean Corpuscular Hemoglobin 24.6L, Mean Corpuscular Hemoglobin Concent 30.1L, Red Cell Distribution Width 18.0H, Platelet Count 367, Mean Platelet Volume 5.9L, Neutrophils (%) (Auto) 47.6, Lymphocytes (%) (Auto) 38.4, Monocytes (%) (Auto) 8.8, Eosinophils (%) (Auto) 4.2H, Basophils (%) (Auto) 1.1, Sodium Level 142, Potassium Level 3.6, Chloride Level 105, Carbon Dioxide Level 31, Anion Gap 6, Blood Urea Nitrogen 4L, Creatinine 0.6, Estimat Glomerular Filtration Rate > 60, Glucose Level 109H, Calcium Level 8.9, Total Bilirubin 0.2, Aspartate Amino Transf (AST/SGOT) 131H, Alanine Aminotransferase (ALT/SGPT) 126H, Alkaline Phosphatase 277H, Total Protein 6.5, Albumin 3.0L, Globulin 3.5, Albumin/Globulin Ratio 0.9L, Hepatitis A IgM Antibody [Pending], Hepatitis B Surface Antigen [Pending], Hepatitis B Core IgM Antibody [Pending], Hepatitis C Antibody [Pending] Height (Feet): 5 Height (Inches): 7.00 Weight (Pounds): 237 General Appearance: no apparent distress, alert, morbidly obese EENT: PERRL/EOMI, normal ENT inspection Neck: non-tender, normal alignment, supple Cardiovascular: normal peripheral pulses, normal rate, regular rhythm Respiratory/Chest: chest wall non-tender, lungs clear, normal breath sounds Abdomen: normal bowel sounds, non tender, soft, other - underneath abdominal folds to lower abdomen with erythema and TTP Extremities: normal range of motion, non-tender Neurologic: inspector dials II-XII grossly normal, no motor/sensory deficits, alert, oriented x 3 Skin: other - see abdomen comment Ora Morrison NP Jan 28, 2018 13:44
--- NOTE | 2018-01-28 14:02 | GI Initial Consult Note ---
History of Present Illness General Date patient seen: Jan 28, 2018 Time patient seen: 14:50 Reason for Hospitalization: General Complaint Referring physician: MYRNA HUNG Reason for Consultation: LOWER ABDOMINAL PAIN Present Illness HPI Patient is a 67-year-old female who presented after increased dizziness as well as lower abdominal pain. Patient gradual onset of symptoms. She reports having increased discomfort to her lower abdomen which was associated with sharp pain worse on the right side. Patient reports having recently decreased blood sugar. Patient had prior history of gastric bypass approximately 4 months ago. She had not been vomiting. Patient presented increased dizziness. She describes as a spinning sensation. The patient was noted to have a blood sugars in the 70s when she had check.The patient reports having a 40 pound weight loss after gastric bypass surgery. She reports taking the same medications that she previously been on. GI consulted for abdominal pain. Pt seen, awake A&Ox4 NAD with no active s/sx of N/V/D or constipation. Per patient, she's been having sharp lower abdominal pain for approximately a month. She states the pain comes and goes, and does not know of anything that may exacerbate it. States she has diarrhea, but is seldom. Believes her last colonoscopy was approximately 1 year ago, but unsure. The patient presents today anemia, transaminitis with elevated alkaline phosphatase, hypoalbuminemia and elevated TSH levels. CTAP negative. Hep panel is pending. Home Meds Active Scripts Hydrocodone Bit/Acetaminophen 10-325* (NORCO 10-325*) 1 Each Tablet, 1 TAB ORAL Q6H PRN for For Pain, #15 TAB 0 Refills PRN PAIN Prov:Wisam Roper DO 04/15/17 Ibuprofen* (MOTRIN*) 600 Mg Tablet, 600 MG ORAL THREE TIMES A DAY, #30 TAB 0 Refills Prov:Wisam Roper DO 04/15/17 Methocarbamol* (ROBAXIN-750*) 750 Mg Tablet, 750 MG PO TID, #21 TAB 0 Refills Prov:Wisam Roper DO 04/15/17 Reported Medications Duloxetine Hcl* (CYMBALTA*) 30 Mg Capsule., ORAL DAILY, CAP 01/26/18 Omeprazole Magnesium (PRILOSEC OTC) 20 Mg Tablet., ORAL DAILY, TAB 01/26/18 Albuterol Sulfate* (ALBUTEROL SULFATE HHN*) 2.5 Mg/3 Ml Vial.neb, INH Q4H PRN for Shortness of Breath, EA 01/26/18 Nifedipine (Nifedipine*) 10 Mg Capsule, ORAL EVERY 6 HOURS, CAP 01/26/18 Metformin Hcl* (METFORMIN HCL*) 500 Mg Tablet, ORAL TWICE A DAY, TAB 01/26/18 Med list reviewed/reconciled: Yes Allergies: Coded Allergies: PENICILLINS (Verified Allergy, Severe, Rash, 04/15/17) SULFA (SULFONAMIDE ANTIBIOTICS) (Verified Allergy, Severe, Rash, 04/15/17) Patient History History Provided By: Patient, Medical Record PMH Narrative Last Menstrual Period: none Reviewed Nursing Documentation: PMH: Agreed; PSxH: Agreed Nursing Documentation-PMH Hx Hypertension: Yes Hx Asthma: Yes Hx Diabetes: Yes Social History: Denies: smoking, alcohol use, drug use, other Review of Systems All Other Systems: negative except mentioned in HPI Physical Exam Vital Signs Date Time Temp Pulse Resp B/P (MAP) Pulse Ox O2 Delivery O2 Flow Rate FiO2 01/25/18 20:43 98.6 100 20 115/74 92 Room Air 98.6 Sp02 EP Interpretation: reviewed, normal Labs Laboratory Tests Test 01/27/18 14:45 01/28/18 09:55 Vancomycin Level Trough 9.7 ug/mL (5.0-12.0) White Blood Count 4.5 K/UL (4.8-10.8) L Red Blood Count 3.99 M/UL (4.20-5.40) L Hemoglobin 9.8 G/DL (12.0-16.0) L Hematocrit 32.6 % (37.0-47.0) L Mean Corpuscular Volume 82 FL (80-99) Mean Corpuscular Hemoglobin 24.6 PG (27.0-31.0) L Mean Corpuscular Hemoglobin Concent 30.1 G/DL (32.0-36.0) L Red Cell Distribution Width 18.0 % (11.6-14.8) H Platelet Count 367 K/UL (150-450) Mean Platelet Volume 5.9 FL (6.5-10.1) L Neutrophils (%) (Auto) 47.6 % (45.0-75.0) Lymphocytes (%) (Auto) 38.4 % (20.0-45.0) Monocytes (%) (Auto) 8.8 % (1.0-10.0) Eosinophils (%) (Auto) 4.2 % (0.0-3.0) H Basophils (%) (Auto) 1.1 % (0.0-2.0) Sodium Level 142 MMOL/L (136-145) Potassium Level 3.6 MMOL/L (3.5-5.1) Chloride Level 105 MMOL/L (98-107) Carbon Dioxide Level 31 MMOL/L (21-32) Anion Gap 6 mmol/L (5-15) Blood Urea Nitrogen 4 mg/dL (7-18) L Creatinine 0.6 MG/DL (0.55-1.30) Estimat Glomerular Filtration Rate > 60 mL/min (>60) Glucose Level 109 MG/DL (74-106) H Calcium Level 8.9 MG/DL (8.5-10.1) Total Bilirubin 0.2 MG/DL (0.2-1.0) Aspartate Amino Transf (AST/SGOT) 131 U/L (15-37) H Alanine Aminotransferase (ALT/SGPT) 126 U/L (12-78) H Alkaline Phosphatase 277 U/L (46-116) H Total Protein 6.5 G/DL (6.4-8.2) Albumin 3.0 G/DL (3.4-5.0) L Globulin 3.5 g/dL Albumin/Globulin Ratio 0.9 (1.0-2.7) L Hepatitis A IgM Antibody Pending Hepatitis B Surface Antigen Pending Hepatitis B Core IgM Antibody Pending Hepatitis C Antibody Pending General Appearance: well appearing, no apparent distress, alert, obese Head: normocephalic EENT: PERRL/EOMI, normal ENT inspection Neck: supple Respiratory: normal breath sounds, no respiratory distress Cardiovascular: normal rate Gastrointestinal: normal inspection, non tender, soft, normal bowel sounds, non -distended Rectal: deferred Genitourinary: no CVA tenderness Musculoskeletal: normal inspection, back normal Neurologic: normal inspection, alert, oriented x3, responsive Psychiatric: normal inspection, judgement/insight normal, memory normal Skin: normal inspection, normal color, no rash, warm/dry, palpation normal, well hydrated Lymphatic: normal inspection, no adenopathy Current Medications Current Medications Medications (Trade) Dose Ordered Sig/Christina Route PRN Reason Start Time Stop Time Status Last Admin Dose Admin Acetaminophen (Tylenol) 650 mg Q4H PRN ORAL Mild Pain (Pain Scale 1-3) 01/27/18 14:54 02/25/18 14:53 Acetaminophen (Tylenol) 650 mg Q4H PRN ORAL fever 01/27/18 14:54 02/25/18 14:53 Bisacodyl (Dulcolax) 10 mg DAILYPRN PRN RECTAL Constipation 01/27/18 14:55 02/26/18 14:54 Ceftriaxone Sodium 1 gm/ Dextrose 55 ml @ 110 mls/hr Q24H IVPB 01/28/18 00:00 02/03/18 00:00 01/27/18 23:18 Clotrimazole (Lotrimin) 1 applic EVERY 12 HOURS TOPIC 01/27/18 21:00 02/25/18 20:59 01/28/18 09:12 Dextrose (Dextrose 50%) 25 ml STAT PRN IV Hypoglycemia 01/28/18 01:45 02/25/18 01:44 Dextrose (Dextrose 50%) 50 ml STAT PRN IV Hypoglycemia 01/28/18 01:45 02/25/18 01:44 Diatrizoate Meglum/ Diatrizoate Sod (Gastrografin) 30 ml NOW PRN ORAL Radiology Procedure 01/27/18 14:56 01/28/18 23:59 Docusate Sodium (Colace) 100 mg EVERY 12 HOURS ORAL 01/27/18 21:00 02/25/18 08:59 01/28/18 09:12 Heparin Sodium (Porcine) (Heparin 5000 units/ml) 5,000 units EVERY 12 HOURS SUBQ 01/27/18 21:00 02/25/18 08:59 01/28/18 09:13 Insulin Aspart (NovoLOG) BEFORE MEALS AND HS SUBQ 01/27/18 16:30 02/25/18 06:29 01/28/18 12:25 Iopamidol (Isovue-300 100ml) 100 ml NOW PRN INJ Radiology Procedure 01/27/18 14:57 01/28/18 23:59 Morphine Sulfate (Morphine Sulfate) 2 mg Q4H PRN IVP moderate pain 01/27/18 14:57 02/02/18 14:56 Morphine Sulfate (Morphine Sulfate) 4 mg Q4H PRN IVP severe pain 01/27/18 14:57 02/02/18 14:56 01/28/18 10:48 Ondansetron HCl (Zofran) 4 mg Q6H PRN IVP Nausea & Vomiting 01/27/18 14:58 02/25/18 14:57 Polyethylene Glycol (Miralax) 17 gm DAILYPRN PRN ORAL Constipation 01/27/18 14:58 02/26/18 14:57 Vancomycin HCl (Vanco rx to dose) 1 ea DAILY PRN MISC Per rx protocol 01/28/18 09:00 02/25/18 01:59 Vancomycin HCl/ Dextrose 250 ml @ 166.667 mls/hr Q12H IVPB 01/27/18 17:00 02/01/18 16:59 01/28/18 05:41 GI: Plan Problems: (1) Postcholecystectomy syndrome (2) History of gastric bypass (3) History of cholecystectomy (4) Transaminitis Plan CTAP reviewed >> negative hepatitis panel pending elevated TSH transaminitis hx of gastric bypass with weight loss of 40lbs hx of colonoscopy x 1 year ago unclear cause of lower abdominal pain at this time symptomatically treatment anemia work up pain mgmt zofran prn trend LFTs, fu hepatitis panel fu labs, free T4 Discussed with Dr. Evans. Thank you for this patient referral, we will follow. The patient was seen and examined at bedside and all new and available data was reviewed in the patients chart. I agree with the above findings, impression and plan. (Patient seen earlier today. Signature stamp does not reflect patient encounter time.). - MD Liya HollisLittle [facility] Jan 28, 2018 14:02
[2018-01-28] MEDS ORDERED: Tubing IV Secondary IV ONE (16:08)
[2018-01-28] MEDS ORDERED: NS 275ml ONE (16:08)
[2018-01-28 16:10] VITALS: BP 114/54
--- NOTE | 2018-01-28 17:52 | Infectious Diseases Prog Note ---
Assessment/Plan Assessment/Plan ASSESSMENT AND PLAN: 1. Abdominal wall cellulitis, ? fungal component - clinically less cellulitis and redness, still with some pain per patient - vancomycin plus rocephin - day # 3 antibiotics, - continue clotrimazole cream - monitor labs - d/w RN and patient - if continues time improve can transition to oral antibiotics such as doxycycline plus keflex for remainder of antibiotic course - plan on 10 days total of iv and oral antibiotics 2. Diabetes. 3. Hypertension. 4. History of gastric bypass surgery. 5. History of asthma. 6. MAR was noted. 7. Allergy to penicillin and sulfa. 8. Family history is noncontributory. 9. Case was discussed with RN. 10. Social history is negative for smoking, alcohol, or drug use. 11. Continue treatment per primary consultants. 12. Notes were noted. Orders were entered. 13. Case was discussed with the patient and the RN. Subjective Constitutional: Denies: fever HEENT: Denies: congestion Respiratory: Denies: shortness of breath Cardiovascular: Denies: chest pain, palpitations, dyspnea on exertion Gastrointestinal/Abdominal: Reports: other - still with lower abdominal pain; Denies: nausea, vomiting, diarrhea Genitourinary: Reports: other - no pringle ; Denies: dysuria, hematuria Neurologic: Denies: headache Psychiatric: Denies: depression Skin: Denies: rash Hematologic: Denies: bleeding Musculoskeletal: Denies: pain Allergies: Coded Allergies: PENICILLINS (Verified Allergy, Severe, Rash, 04/15/17) SULFA (SULFONAMIDE ANTIBIOTICS) (Verified Allergy, Severe, Rash, 04/15/17) Uncoded Allergies: IV contrast (Allergy, Intermediate, Shortness of Breath, Rash, 01/28/18) Per Pt. Objective Vital Signs Last 24 Hour Vital Signs Date Time Temp Pulse Resp B/P (MAP) Pulse Ox O2 Delivery O2 Flow Rate FiO2 01/28/18 16:54 97.8 01/28/18 16:20 97.8 01/28/18 16:10 98.4 63 18 114/54 (74) 100 98.4 01/28/18 12:10 97.8 63 18 106/61 (76) 96 97.8 01/28/18 10:48 98.7 01/28/18 09:00 Room Air 7/30/18 08:18 98.7 68 18 106/55 (72) 96 98.7 01/28/18 04:00 97.9 65 18 133/73 (93) 96 97.9 01/28/18 00:00 98.0 70 20 111/64 (80) 98 98.0 01/27/18 21:00 Room Air 01/27/18 20:00 98.6 73 18 121/78 (92) 95 98.6 Height (Feet): 5 Height (Inches): 7.00 Weight (Pounds): 237 General Appearance: no acute distress HEENT: normocephalic, atraumatic, anicteric, mucous membranes moist Respiratory/Chest: lungs clear, normal breath sounds, no respiratory distress, no accessory muscle use Cardiovascular: normal rate, regular rhythm, no gallop/murmur, no JVD Abdomen: normal bowel sounds, soft, non tender, no organomegaly, non distended , other - abdominal wall cellulitis improved, less redness Genitourinary: other - no pringle Extremities: no cyanosis Skin: no rash 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, alert, oriented x 3, responsive Lymphatic: no neck adenopathy Musculoskeletal: no effusion Objective CT abdomen and pelvis - NAD, report noted Chest x-ray - NAD, report noted Microbiology Date/Time Source Procedure Growth Status 01/25/18 21:30 Blood Blood Culture - Preliminary NO GROWTH AFTER 48 HOURS Resulted 01/25/18 21:15 Blood Blood Culture - Preliminary NO GROWTH AFTER 48 HOURS Resulted Laboratory Tests Test 01/28/18 09:55 White Blood Count 4.5 K/UL (4.8-10.8) L Red Blood Count 3.99 M/UL (4.20-5.40) L Hemoglobin 9.8 G/DL (12.0-16.0) L Hematocrit 32.6 % (37.0-47.0) L Mean Corpuscular Volume 82 FL (80-99) Mean Corpuscular Hemoglobin 24.6 PG (27.0-31.0) L Mean Corpuscular Hemoglobin Concent 30.1 G/DL (32.0-36.0) L Red Cell Distribution Width 18.0 % (11.6-14.8) H Platelet Count 367 K/UL (150-450) Mean Platelet Volume 5.9 FL (6.5-10.1) L Neutrophils (%) (Auto) 47.6 % (45.0-75.0) Lymphocytes (%) (Auto) 38.4 % (20.0-45.0) Monocytes (%) (Auto) 8.8 % (1.0-10.0) Eosinophils (%) (Auto) 4.2 % (0.0-3.0) H Basophils (%) (Auto) 1.1 % (0.0-2.0) Sodium Level 142 MMOL/L (136-145) Potassium Level 3.6 MMOL/L (3.5-5.1) Chloride Level 105 MMOL/L (98-107) Carbon Dioxide Level 31 MMOL/L (21-32) Anion Gap 6 mmol/L (5-15) Blood Urea Nitrogen 4 mg/dL (7-18) L Creatinine 0.6 MG/DL (0.55-1.30) Estimat Glomerular Filtration Rate > 60 mL/min (>60) Glucose Level 109 MG/DL (74-106) H Calcium Level 8.9 MG/DL (8.5-10.1) Total Bilirubin 0.2 MG/DL (0.2-1.0) Aspartate Amino Transf (AST/SGOT) 131 U/L (15-37) H Alanine Aminotransferase (ALT/SGPT) 126 U/L (12-78) H Alkaline Phosphatase 277 U/L (46-116) H Total Protein 6.5 G/DL (6.4-8.2) Albumin 3.0 G/DL (3.4-5.0) L Globulin 3.5 g/dL Albumin/Globulin Ratio 0.9 (1.0-2.7) L Hepatitis A IgM Antibody Pending Hepatitis B Surface Antigen Pending Hepatitis B Core IgM Antibody Pending Hepatitis C Antibody Pending Current Medications Medications (Trade) Dose Ordered Sig/Christina Route PRN Reason Start Time Stop Time Status Last Admin Dose Admin Acetaminophen (Tylenol) 650 mg Q4H PRN ORAL Mild Pain (Pain Scale 1-3) 01/27/18 14:54 02/25/18 14:53 Acetaminophen (Tylenol) 650 mg Q4H PRN ORAL fever 01/27/18 14:54 02/25/18 14:53 Bisacodyl (Dulcolax) 10 mg DAILYPRN PRN RECTAL Constipation 01/27/18 14:55 02/26/18 14:54 Ceftriaxone Sodium 1 gm/ Dextrose 55 ml @ 110 mls/hr Q24H IVPB 01/28/18 00:00 02/03/18 00:00 01/27/18 23:18 Clotrimazole (Lotrimin) 1 applic EVERY 12 HOURS TOPIC 01/27/18 21:00 02/25/18 20:59 01/28/18 09:12 Dextrose (Dextrose 50%) 25 ml STAT PRN IV Hypoglycemia 01/28/18 01:45 02/25/18 01:44 Dextrose (Dextrose 50%) 50 ml STAT PRN IV Hypoglycemia 01/28/18 01:45 02/25/18 01:44 Diatrizoate Meglum/ Diatrizoate Sod (Gastrografin) 30 ml NOW PRN ORAL Radiology Procedure 01/27/18 14:56 01/28/18 23:59 Docusate Sodium (Colace) 100 mg EVERY 12 HOURS ORAL 01/27/18 21:00 02/25/18 08:59 01/28/18 09:12 Heparin Sodium (Porcine) (Heparin 5000 units/ml) 5,000 units EVERY 12 HOURS SUBQ 01/27/18 21:00 02/25/18 08:59 01/28/18 09:13 Insulin Aspart (NovoLOG) BEFORE MEALS AND HS SUBQ 01/27/18 16:30 02/25/18 06:29 01/28/18 17:29 Iopamidol (Isovue-300 100ml) 100 ml NOW PRN INJ Radiology Procedure 01/27/18 14:57 01/28/18 23:59 Future Hold Morphine Sulfate (Morphine Sulfate) 2 mg Q4H PRN IVP moderate pain 01/27/18 14:57 02/02/18 14:56 Morphine Sulfate (Morphine Sulfate) 4 mg Q4H PRN IVP severe pain 01/27/18 14:57 02/02/18 14:56 01/28/18 16:20 Ondansetron HCl (Zofran) 4 mg Q6H PRN IVP Nausea & Vomiting 01/27/18 14:58 02/25/18 14:57 Polyethylene Glycol (Miralax) 17 gm DAILYPRN PRN ORAL Constipation 01/27/18 14:58 02/26/18 14:57 Vancomycin HCl (Vanco rx to dose) 1 ea DAILY PRN MISC Per rx protocol 01/28/18 09:00 02/25/18 01:59 Vancomycin HCl/ Dextrose 250 ml @ 166.667 mls/hr Q12H IVPB 01/27/18 17:00 02/01/18 16:59 01/28/18 16:20 Billy Waters MD Jan 28, 2018 17:52
[2018-01-28 20:00] VITALS: BP 116/72
[2018-01-29] VITALS: BP 128/83
[2018-01-29] MEDS: cefTRIAXone 1 GM in D5W 55 ML IVPB SCH (00:01)
[2018-01-29] MEDS: Morphine Sulfate 4mg/ml Inj IVP PRN ×4 (01:10→13:18)
[2018-01-29 04:00] VITALS: BP 119/73
[2018-01-29 04:43] LABS: EOSINOPHILS % (AUTO) 4.5 % (0.0-3.0); HEMATOCRIT 31.4 % (37.0-47.0); HEMOGLOBIN 9.7 G/DL (12.0-16.0); MEAN CORPUSCULAR VOLUME 82 FL (80-99); NEUTROPHILS % (AUTO) 47.6 % (45.0-75.0); PLATELET COUNT 383 K/UL (150-450); RED BLOOD COUNT 3.85 M/UL (4.20-5.40); RED CELL DISTRIBUTION WIDTH 18.1 % (11.6-14.8); WHITE BLOOD COUNT 5.2 K/UL (4.8-10.8)
[2018-01-29 05:08] LABS: % IRON SATURATION 7 % (15-50); IRON 20 ug/dL (50-175); TOTAL IRON BINDING CAPACITY 295 ug/dL (250-450)
[2018-01-29 05:13] LABS: ALANINE AMINOTRANSFERASE 96 U/L (12-78); ALBUMIN/GLOBULIN RATIO 0.9 (1.0-2.7); ALKALINE PHOSPHATASE 241 U/L (46-116); ANION GAP 5 mmol/L (5-15); ASPARTATE AMINO TRANSFERASE 61 U/L (15-37); BILIRUBIN,TOTAL 0.2 MG/DL (0.2-1.0); BLOOD UREA NITROGEN 6 mg/dL (7-18); CALCIUM 8.9 MG/DL (8.5-10.1); CARBON DIOXIDE 32 MMOL/L (21-32); CHLORIDE 106 MMOL/L (98-107); CREATININE 0.6 MG/DL (0.55-1.30); FERRITIN 8 NG/ML (8-388); POTASSIUM 3.6 MMOL/L (3.5-5.1); SODIUM 143 MMOL/L (136-145)
[2018-01-29] MEDS: Vancomycin 1250mg/D5W 250ml IVPB SCH (06:29)
[2018-01-29] MEDS: NovoLOG Insulin Flexpen SUBQ SCH ×3 (06:30→17:15)
[2018-01-29 08:00] VITALS: BP 109/61
[2018-01-29] MEDS: Docusate 100mg cap ORAL SCH (09:15)
[2018-01-29] MEDS: Heparin 5000 units/ml inj SUBQ SCH (09:22)
[2018-01-29] MEDS ORDERED: DOXYCYCLINE MO100 MG ORAL (11:57)
[2018-01-29] MEDS ORDERED: CEPHALEXIN500 MG ORAL (11:57)
[2018-01-29 12:00] VITALS: BP 118/67
--- NOTE | 2018-01-29 13:15 | Discharge Summary ---
Discharge Summary Hospital Course Date of Admission Jan 26, 2018 at 00:17 Date of Discharge January 29, 2018 Admitting Diagnosis generalized weakness, abdominal pain HPI Valdo Hernandes is a 67 year old female who was admitted on Jan 26, 2018 at 00:17 for Generalized Weakness,Abdominal Pain 67 year-old woman who presented after increased dizziness as well as lower abdominal pain. Patient reports having increased discomfort to her lower abdomen which was associated with sharp pain worse on the right side. She also notes having recently decreased blood sugar. Patient had prior history of gastric bypass approximately 4 months ago. +Nausea no vomitiing..+dizziness She reports having a 40 pound weight loss after gastric bypass surgery. Consultations ID GI Procedures None Hospital Course Patient was admitted. CT a/p was unremarkable but showed surgical abscence of gallbladder. LFTs initially were wnl but started trending up during hospital course. GI was consulted. Hepatitis panel was negative and LFTs started trending down again. This was likely postcholecystectomy syndrome and no further interventions were needed at this time. Patient was also started on IV vancomycin and ceftriaxone and ID was consulted. Patient's abdominal pain and erythema improved to abdominal skin. Patient was therefore afebrile and hemodynamically stable for discharge. Patient was cleared per discharge from ID and GI. Patient was therefore discharged on another week of doxycycline and keflex. Physical Examination on day of discharge general: NAD HEENT: atraumatic, supple, no LAD, PEERL Lungs: CTAB Cardiology: RRR Abdomen: mild erythema underneath abdominal folds. soft, non-tender, non- distended Extremities: no edema Neuro: A&O x 3. no focal deficits Discharge Medications New Medications: Cephalexin* (Keflex*) 500 Mg Capsule 500 MG ORAL EVERY 12 HOURS for 7 Days, #14 CAP 0 Refills Doxycycline Monohydrate* (Doxycycline Monohydrate*) 100 Mg Capsule 100 MG ORAL TWICE A DAY for 7 Days, #14 CAP 0 Refills Continued Medications: Albuterol Sulfate* (Albuterol Sulfate Hhn*) 2.5 Mg/3 Ml Vial.neb Unknown Dose INH Q4H PRN for Shortness of Breath, EA Duloxetine Hcl* (Cymbalta*) 30 Mg Capsule.dr Unknown Dose ORAL DAILY, CAP Hydrocodone Bit/Acetaminophen 10-325* ([place] 10-325*) 1 Each Tablet 1 TAB ORAL Q6H PRN for For Pain, #15 TAB 0 Refills PRN PAIN Ibuprofen* (Motrin*) 600 Mg Tablet 600 MG ORAL THREE TIMES A DAY, #30 TAB 0 Refills Metformin Hcl* (Metformin Hcl*) 500 Mg Tablet Unknown Dose ORAL TWICE A DAY, TAB Methocarbamol* (Robaxin-750*) 750 Mg Tablet 750 MG PO TID, #21 TAB 0 Refills Nifedipine (Nifedipine*) 10 Mg Capsule Unknown Dose ORAL EVERY 6 HOURS, CAP Omeprazole Magnesium (Prilosec Otc) 20 Mg Tablet.dr Unknown Dose ORAL DAILY, TAB Discharge Condition Upon Discharge: improving, stable Discharge Disposition Patient was discharged to home with home health Discharge Diagnoses: (1) Transaminitis (2) Abdominal wall cellulitis (3) Postcholecystectomy syndrome (4) History of gastric bypass (5) History of cholecystectomy (6) Dizziness Ora Morrison NP Jan 29, 2018 13:15
--- NOTE | 2018-01-29 15:28 | GI Progress Note ---
Assessment/Plan Problems: (1) Postcholecystectomy syndrome ICD Codes: K91.5 - Postcholecystectomy syndrome SNOMED: 49656157 (2) Transaminitis ICD Codes: R74.0 - Nonspecific elevation of levels of transaminase and lactic acid dehydrogenase [LDH] SNOMED: 313809957, 633861667 (3) Fatemeh infection ICD Codes: B37.9 - Candidiasis, unspecified SNOMED: 50939336, 684953407 (4) History of cholecystectomy ICD Codes: Z90.49 - Acquired absence of other specified parts of digestive tract SNOMED: 27607326, 670987119 (5) History of gastric bypass ICD Codes: Z98.84 - Bariatric surgery status SNOMED: 794929385 Status: stable Status Narrative Discussed with Dr. Evans. Assessment/Plan CTAP reviewed >> negative hepatitis panel pending elevated TSH, decreased T4 suggestive of hypothyroidism transaminitis hx of gastric bypass with weight loss of 40lbs hx of colonoscopy x 1 year ago symptomatically treatment anemia work up pain mgmt zofran prn trend LFTs fu labs, free T4 The patient was seen and examined at bedside and all new and available data was reviewed in the patients chart. I agree with the above findings, impression and plan. (Patient seen earlier today. Signature stamp does not reflect patient encounter time.). - Steven Evans MD Subjective Gastrointestinal/Abdominal: Reports: no symptoms Objective Last 24 Hour Vital Signs Date Time Temp Pulse Resp B/P (MAP) Pulse Ox O2 Delivery O2 Flow Rate FiO2 01/29/18 13:48 98.6 01/29/18 13:18 98.6 01/29/18 12:00 98.6 72 20 118/67 (84) 97 98.6 01/29/18 09:16 98.1 01/29/18 09:00 Room Air 01/29/18 08:00 98.1 70 20 109/61 (77) 98 98.1 01/29/18 04:00 98.6 77 18 119/73 (88) 100 98.6 01/29/18 00:00 98.7 79 18 128/83 (98) 98 98.7 01/28/18 21:00 Room Air 01/28/18 20:00 98.5 78 18 116/72 (87) 98 98.5 01/28/18 16:20 97.8 01/28/18 16:10 98.4 63 18 114/54 (74) 100 98.4 Intake and Output 01/28/18 01/29/18 19:00 07:00 Intake Total 500 ml 355 ml Output Total 0 ml 3 ml Balance 500 ml 352 ml Intake Oral 500 ml 300 ml IV Total 55 ml Output Urine Total 3 ml Stool Total 0 ml # Voids 4 # Bowel Movements 1 Laboratory Tests Test 01/29/18 04:18 01/29/18 10:05 White Blood Count 5.2 K/UL (4.8-10.8) Red Blood Count 3.85 M/UL (4.20-5.40) L Hemoglobin 9.7 G/DL (12.0-16.0) L Hematocrit 31.4 % (37.0-47.0) L Mean Corpuscular Volume 82 FL (80-99) Mean Corpuscular Hemoglobin 25.3 PG (27.0-31.0) L Mean Corpuscular Hemoglobin Concent 30.9 G/DL (32.0-36.0) L Red Cell Distribution Width 18.1 % (11.6-14.8) H Platelet Count 383 K/UL (150-450) Mean Platelet Volume 6.6 FL (6.5-10.1) Neutrophils (%) (Auto) 47.6 % (45.0-75.0) Lymphocytes (%) (Auto) 39.0 % (20.0-45.0) Monocytes (%) (Auto) 8.0 % (1.0-10.0) Eosinophils (%) (Auto) 4.5 % (0.0-3.0) H Basophils (%) (Auto) 1.0 % (0.0-2.0) Reticulocyte Count 2.5 % (0.0-2.0) H Sodium Level 143 MMOL/L (136-145) Potassium Level 3.6 MMOL/L (3.5-5.1) Chloride Level 106 MMOL/L (98-107) Carbon Dioxide Level 32 MMOL/L (21-32) Anion Gap 5 mmol/L (5-15) Blood Urea Nitrogen 6 mg/dL (7-18) L Creatinine 0.6 MG/DL (0.55-1.30) Estimat Glomerular Filtration Rate > 60 mL/min (>60) Glucose Level 99 MG/DL (74-106) Calcium Level 8.9 MG/DL (8.5-10.1) Iron Level 20 ug/dL (50-175) L Total Iron Binding Capacity 295 ug/dL (250-450) Percent Iron Saturation 7 % (15-50) L Unsaturated Iron Binding 275 ug/dL (112-346) Ferritin 8 NG/ML (8-388) Total Bilirubin 0.2 MG/DL (0.2-1.0) Aspartate Amino Transf (AST/SGOT) 61 U/L (15-37) H Alanine Aminotransferase (ALT/SGPT) 96 U/L (12-78) H Alkaline Phosphatase 241 U/L (46-116) H Total Protein 6.5 G/DL (6.4-8.2) Albumin 3.0 G/DL (3.4-5.0) L Globulin 3.5 g/dL Albumin/Globulin Ratio 0.9 (1.0-2.7) L Carcinoembryonic Antigen Pending Vitamin B12 Level 717 PG/ML (193-986) Folate 15.8 NG/ML (8.6-58.9) Free Thyroxine 0.64 NG/DL (0.76-1.46) L Vancomycin Level Trough 11.9 ug/mL (5.0-12.0) Stool Occult Blood Negative (NEGATIVE) Height (Feet): 5 Height (Inches): 7.00 Weight (Pounds): 237 General Appearance: WD/WN, no apparent distress, alert Cardiovascular: normal rate Respiratory/Chest: normal breath sounds, no respiratory distress Abdominal Exam: normal bowel sounds, non tender, soft Extremities: normal range of motion, non-tender Adonis Nickerson [employer] Jan 29, 2018 15:28
[2018-01-29 16:00] VITALS: BP 121/70
--- NOTE | 2018-01-30 13:30 | Consultation ---
DATE OF CONSULTATION: 01/29/2018 HEMATOLOGY/ONCOLOGY CONSULTATION CONSULTING PHYSICIAN: Ming Ignacio M.D. REQUESTING PHYSICIAN: Cindy Wiggins M.D. and Ora Morrison NP REASON FOR CONSULTATION: Evaluation of anemia. IDENTIFYING DATA: Dear Dr. Wiggins and Ora Morrison, The patient is a pleasant 67-year-old female with history of recent gastric bypass, hypertension, asthma, diabetes mellitus. At this time, presented to the [facility] with abdominal pain, has a history significant for diabetes, hypertension, gastric bypass, asthma, seen by Infectious Disease. The patient has abdominal wall cellulitis with warmth and erythema noted on admission. Started on . Hematology Service was consulted for further evaluation and treatment given ongoing anemia. In addition, noted to have iron deficiency. Anemia workup was ordered on admission. PAST MEDICAL HISTORY: Recent gastric bypass, hypertension, asthma, and diabetes. MEDICATIONS: , hydrocodone, metformin, and ibuprofen. ALLERGIES: Penicillin and sulfa. FAMILY HISTORY: Noncontributory. Negative for TB or cancer. SOCIAL HISTORY: No alcohol, tobacco, or illicit drug use. REVIEW OF SYSTEMS: CONSTITUTIONAL: No fevers, chills, or night sweats. SKIN: No rashes, bumps, or itching. HEENT: No headache, hearing or visual changes. BREASTS: No lumps, pain, or discharge. PULMONARY: No cough, sputum, or shortness of breath. GASTROINTESTINAL: No nausea, vomiting, or diarrhea. GENITOURINARY: No dysuria, frequency, or urgency. MUSCULOSKELETAL: No joint swelling, muscle pain, or trauma. PHYSICAL EXAMINATION: VITAL SIGNS: Reviewed. GENERAL: No acute distress. PULMONARY: Decreased breath sounds. CARDIOVASCULAR: Regular rate. No S3-S4. ABDOMEN: Soft, nontender, and nondistended. EXTREMITIES: No cyanosis, swelling, or edema noted. LABORATORY DATA: Laboratories were reviewed. INR of 1. WBC 5.2, hemoglobin 9.1, and platelet count 283,000. ASSESSMENT AND RECOMMENDATION: 1. Anemia of iron deficiency. Recommend IV iron versus p.o. iron in the outpatient setting. The patient is seen by GI Service. 2. History of gastric bypass. 3. Leukopenia potentially secondary to infectious process. 4. Obesity, status post gastric bypass. 5. Hypothyroidism. 6. History of colonoscopy one year ago. 7. Nausea and vomiting. Zofran on p.r.n. basis. 8. Generalized weakness. 9. Abdominal wall cellulitis. I appreciate the consultation. Ming Ignacio M.D. DR: DENNY JOB#: [id number] CC:
== END 2018-01-29 17:40 | disposition home health service (06) | DRG 603 ==
LOC: EMR 20:56 → 2W 01-26 00:17 → EDBEDREQ 01-26 00:32 → 3E 01-27 15:06
DX: L03.311 Cellulitis of abdominal wall (principal); R10.9 Unspecified abdominal pain; I10 Essential (primary) hypertension; E11.9 Type 2 diabetes mellitus without complications; Z98.84 Bariatric surgery status; R74.0 Nonspecific elevation of levels of transaminase and lactic acid dehydrogenase [LDH]; K91.5 Postcholecystectomy syndrome; Y83.8 Other surgical procedures as the cause of abnormal reaction of the patient, or of later complication, without mention of misadventure at the time of the procedure; R42 Dizziness and giddiness; Z79.4 Long term (current) use of insulin; J45.909 Unspecified asthma, uncomplicated; Z88.0 Allergy status to penicillin; Z88.2 Allergy status to sulfonamides; D50.9 Iron deficiency anemia, unspecified; E03.9 Hypothyroidism, unspecified; E66.9 Obesity, unspecified
CPT/HCPCS: 36415; 71045; 74177; 80048; 80053; 80202; 81003; 82270; 82378; 82550; 82553; 82607; 82728; 82746; 82962; 83036; 83540; 83550; 83605; 83735; 84100; 84439; 84443; 84484; 85025; 85044; 85610; 85730; 86705; 86709; 86803; 86850; 86900; 86901; 87040; 87340; 93005; J1815; J2405

== ENCOUNTER 2018-10-02 16:22 | Emergency (ER) | payer MEDICARE ==
[~2018-10-02] VITALS: Ht 170.2 cm; Wt 93.9 kg
[~2018-10-02 16:22] MED LIST changes: +ADALAT10 MG ORAL; +ALBUTEROL2.5 MG/3 M INH; +CEPHALEXIN500 MG ORAL; +CYMBALTA30 MG ORAL; +DOXYCYCLINE MO100 MG ORAL; +METFORMIN HCL500 M1 ORAL; +PRILOSEC OTC20 MG ORAL
--- NOTE | 2018-10-02 16:37 | NUR ---
ED Nurse Note: PT WALKED IN TO ER TODAY FROM HOME. AOX4. PT C/O PAIN, 10/10 AT LATERAL SIDE OF RIGHT FOOT X 2 DAYS AGO AFTER ACCIDENTALLY KICKING THE VACCUM PIPE LAYER HELPER. SKIN CLEAN, DRY, AND INTACT. CIRCULATION AND SENSATION INTACT, CAP REFILL <3 SECONDS, LIMITED ROM OF DIGITS BUT FULL ROM OF ANKLE. MUSCLE STRENGTH 5/5 AND GAIT STEADY.
[2018-10-02] MEDS ORDERED: HYDROcodone/Acetamin 5/325 tab ORAL ONE (16:45)
--- NOTE | 2018-10-02 16:54 | NUR ---
ED Nurse Note: XRAY AT BEDSIDE.
--- NOTE | 2018-10-02 16:55 | Emergency Room Report ---
History of Present Illness General Chief Complaint: Lower Extremity Injury Present Illness HPI 68 YO Female presents to the ED c/o 04/10 in severity localized right foot pain x 3 days. s/p accidentally kicking the vaccuum. She reports swelling, tenderness and bruising. States pain is worse with attempts to bear weight. Denies deformity. Denies numbness tingling or loss of sensation or gross motor movements of the extremities, incontinence of bowel or bladder. Denies CP, Palpitations, LOC, AMS, dizziness, Changes in Vision, weakness or a sudden severe headache. Allergies: Coded Allergies: PENICILLINS (Verified Allergy, Severe, Rash, 04/15/17) SULFA (SULFONAMIDE ANTIBIOTICS) (Verified Allergy, Severe, Rash, 04/15/17) Patient History Past Medical History: see triage record Past Surgical History: unable to obtain Pertinent Family History: none Now: No Reviewed Nursing Documentation: PMH: Agreed; PSxH: Agreed Nursing Documentation-PMH Hx Cardiac Problems: Yes Hx Hypertension: Yes Hx Asthma: Yes Hx Diabetes: Yes Hx Cancer: No Hx Neurological Problems: No Review of Systems All Other Systems: negative except mentioned in HPI Physical Exam Vital Signs Date Time Temp Pulse Resp B/P (MAP) Pulse Ox O2 Delivery O2 Flow Rate FiO2 10/02/18 16:27 97.9 83 19 142/77 95 Room Air Sp02 EP Interpretation: reviewed, normal General Appearance: no apparent distress, alert, GCS 15, non-toxic Head: normocephalic, atraumatic Eyes: bilateral eye normal inspection, bilateral eye PERRL ENT: hearing grossly normal, normal voice Neck: full range of motion Respiratory: chest non-tender, lungs clear, normal breath sounds, speaking full sentences Cardiovascular #1: regular rate, rhythm Cardiovascular #2: 2+ dorsalis pedis (R), 2+ dorsalis pedis (L) Musculoskeletal: back normal, normal range of motion, tender - TTP to the lateral aspect of the right foot, no obvious deformity, mild swelling noted, no bruises. Neurologic: alert, oriented x3, responsive, motor strength/tone normal, sensory intact, speech normal, grossly normal Psychiatric: judgement/insight normal Skin: normal color, no rash, warm/dry, well hydrated Medical Decision Making PA Attestation Dr. mckeon is my supervising Physician whom patient management has been discussed with. Diagnostic Impression: Primary Impression: Foot pain, right Additional Impressions: Contusion of foot Qualified Codes: S90.31XA - Contusion of right foot, initial encounter Avulsion fracture of metatarsal bone Qualified Codes: S92.301A - Fracture of unspecified metatarsal bone(s), right foot, initial encounter for closed fracture ER Course 68 YO Female presents to the ED c/o 04/10 in severity localized right foot pain x 3 days. s/p accidentally kicking the vaccuum. She reports swelling, tenderness and bruising. States pain is worse with attempts to bear weight. Denies deformity. Denies numbness tingling or loss of sensation or gross motor movements of the extremities, incontinence of bowel or bladder. Denies CP, Palpitations, LOC, AMS, dizziness, Changes in Vision, weakness or a sudden severe headache. Ddx considered but are not limited to Fracture, dislocation, contusion, Sprain/ Strain/Spasm, Vital signs: are WNL, pt. is afebrile H&PE are most consistent with musculoskeletal injury will perform imaging to r/ o fractures/dislocations. ORDERS: - X-ray Right foot - questionable avulsion fx of metatarsal. ED INTERVENTIONS: - [place] PO Right short leg posterior splint applied by dairy technician. Pt. remains neurovascularly intact. --Patient is provided with crutches and instructed on their use DISCHARGE: At this time pt. is stable for d/c to home. Will provide printed patient care instructions, and any necessary prescriptions. Care plan and follow up instructions have been discussed with the patient prior to discharge. Other X-Ray Diagnostic Results Other X-Ray Diagnostic Results : X-Ray ordered: Right Ankle # of Views/Limited Vs Complete: 3 View Indication: Pain EP Interpretation: Yes PA Xray: Interpretation reviewed, by supervising MD, and agrees with findings. Interpretation: no dislocation, no soft tissue swelling, other - suspected mild/small avulsion fx of the metatarsal bone. Impression: No acute disease Electronically Signed by: Roxy Griffin PA-C Last Vital Signs Date Time Temp Pulse Resp B/P (MAP) Pulse Ox O2 Delivery O2 Flow Rate FiO2 10/02/18 16:27 97.9 83 19 142/77 95 Room Air Disposition: HOME, SELF-CARE Condition: Stable Scripts Ibuprofen* (MOTRIN*) 600 Mg Tablet 600 MG ORAL THREE TIMES A DAY, #30 TAB 0 Refills Prov: Roxy Griffin 10/02/18 Acetaminophen With Codeine (T#3) (TYLENOL #3 TAB*) Y Tab 1 TAB ORAL Q6H PRN for For Pain, #12 TAB Prov: Roxy Griffin 10/02/18 Patient Instructions: Avulsion Fracture of the Foot, Foot Sprain Additional Instructions: Take medications as directed. Follow up with a Primary Care Provider in 3-5 days, even if your symptoms have resolved. --Please review list of primary care clinics, if you do not already have a primary care provider Return sooner to ED if new symptoms occur, or current symptoms become worse. - Please note that this Emergency Department Report was dictated using [employer] sales consultant technology software, occasionally this can lead to erroneous entry secondary to interpretation by the dictation equipment. Roxy Griffin Oct 02, 2018 16:55
[2018-10-02] MEDS ORDERED: ACETAMINOPHEN-1 EAC1 ORAL (17:12)
[2018-10-02] MEDS ORDERED: IBUPROFEN600 MG ORAL (17:12)
[2018-10-02 17:20] VITALS: BP 136/78
--- NOTE | 2018-10-02 17:20 | NUR ---
ED Nurse Note: EMT AT BEDSIDE FOR LEG SPLINT.
--- NOTE | 2018-10-02 17:21 | NUR ---
ED Nurse Note: PT SITTING PEACEFULLY IN BED IN NAD. AOX4. PRESCRIPTIONS AND DISCHARGE PAPERWORK EXPLAINED TO PT. PT VERBALIZES UNDERSTANDING AND ALL QUESTIONS ANSWERED. PRESCRIPTIONS AND DISCHARGE PAPERWORK GIVEN TO PT AND ID WRISTBAND REMOVED. PT WALKED OUT OF ER WITH STEADY GAIT AND ALL BELONGINGS.
--- NOTE | 2018-10-03 11:08 | Diagnostic Imaging Report ---
Indication: Right foot pain Technique: 3 views right foot Comparison: none Findings: No definite acute fractures. No dislocations. Small well-corticated ossific density projects adjacent to the cuboid, probably a small accessory ossicle. The joint spaces are preserved. Impression: No acute process
== END 2018-10-02 17:20 | disposition home or self-care (01) ==
LOC: EMR 16:58
DX: M25.571 Pain in right ankle and joints of right foot (principal); S90.31XA Contusion of right foot, initial encounter; S92.301A Fracture of unspecified metatarsal bone(s), right foot, initial encounter for closed fracture; W22.09XA Striking against other stationary object, initial encounter; Y92.9 Unspecified place or not applicable; I10 Essential (primary) hypertension; Z88.0 Allergy status to penicillin; Z88.2 Allergy status to sulfonamides
CPT/HCPCS: 29515; 99283